=== PATIENT | male | born 1970 | race African-American/Black ===

== ENCOUNTER 2017-05-23 11:36 | Emergency (ER) | payer OTHER ==
[~2017-05-23] VITALS: Ht 188 cm; Wt 96.6 kg
[~2017-05-23 11:36] MED LIST: CRUTCH1 EACH MISCELL; CYCLOBENZAPRINE5 MG PO; HYCET 7.5 MG-3473 ML PO; IBUPROFEN 600600 M1 PO; IBUPROFEN 800800 MG PO; KEFLEX500 MG PO; NOHOMEMEDICATIONS; NORCO 5-325 TA1 EACH PO; ULTRAM 50MG TAB50 MG PO
[2017-05-23 11:37] VITALS: BP 160/115
== END 2017-05-23 12:27 | disposition home or self-care (01) ==
LOC: ER 11:36
DX: S63.697A Other sprain of left little finger, initial encounter (principal); S63.257A Unspecified dislocation of left little finger, initial encounter; Z87.891 Personal history of nicotine dependence; Z88.0 Allergy status to penicillin; X50.1XXA Overexertion from prolonged static or awkward postures, initial encounter; Y93.89 Activity, other specified; Y92.89 Other specified places as the place of occurrence of the external cause; Y99.8 Other external cause status